=== PATIENT | male | born 1990 | race Caucasian/White ===

== ENCOUNTER 2018-08-05 11:20 | Emergency (ER) | payer BC ==
[~2018-08-05] VITALS: Ht 182.8 cm; Wt 79.4 kg
[~2018-08-05 11:20] MED LIST: NKHM
[2018-08-05 12:02] LABS: BILIRUBIN NEGATIVE (NEGATIVE); BLOOD TRACE-LYSED (NEGATIVE); CLARITY SL CLOUDY (CLEAR); COLOR YELLOW (YELLOW); GLUCOSE NEGATIVE (NEGATIVE); KETONE NEGATIVE (NEGATIVE); LEUKO ESTERASE NEGATIVE (NEGATIVE); NITRITE NEGATIVE (NEGATIVE); SPECIFIC GRAVITY 1.015 (1.005-1.030); UROBILINOGEN 0.2 E.U./dl (0.2-1.0)
[2018-08-05 12:12] LABS: URINE AMPHETAMINES < 1000 (1000ng/ml); URINE BARBITURATES < 200 (200ng/ml); URINE BENZODIAZEPINES < 200 (200ng/ml); URINE CANNABINOIDS (THC) < 50 (50ng/ml); URINE COCAINE < 300 (300ng/ml); URINE METHADONE < 300 (300ng/ml); URINE OPIATES < 300 (300ng/ml)
[2018-08-05 12:13] LABS: URINE PHENCYCLIDINE < 25 (25ng/ml)
[2018-08-05 12:15] LABS: BASO % 0.5 % (0.0-1.0); EOS # 0.1 10*3/uL (0.0-0.4); EOS % 0.9 % (1.0-4.0); HEMATOCRIT 47.3 % (42.0-52.0); LYMPH # 1.7 10*3/uL (1.3-4.4); LYMPH % 18.9 % (27.0-41.0); MEAN CELL VOLUME 86.9 fl (80.0-94.0); MEAN CORPUSCULAR HGB 31.3 pg (27.0-31.0); MEAN CORPUSCULAR HGB CONC 35.9 g/dl (33.0-37.0); MEAN PLATELET VOLUME 9.5 fl (9.6-12.3); MONO # 0.8 10*3/uL (0.1-1.0); MONO % 8.7 % (3.0-9.0); NEUT # 6.2 10*3/uL (2.3-7.9); NEUT % 70.7 % (47.0-73.0); PLATELET COUNT AUTOMATED 236 10*3/uL (130-400); RED BLOOD COUNT 5.44 10*6/uL (4.50-5.90); RED CELL DISTRI WIDTH 12.1 % (0-14.5); WHITE BLOOD COUNT 8.8 10*3/uL (4.8-10.8)
[2018-08-05 12:25] LABS: BACTERIA TRACE; MUCOUS TRACE
[2018-08-05 12:42] LABS: ALBUMIN 3.9 gm/dl (3.1-4.5); ALKALINE PHOSPHATASE 101 U/L (45-117); BUN 13 mg/dl (7-24); CHLORIDE 106 mmol/L (98-107); CREATININE 0.83 mg/dL (0.70-1.30); LIPASE 120 U/L (73-393); POTASSIUM 4.4 mmol/L (3.5-5.1); SGOT/AST 19 IU/L (3-35); SGPT/ALT 29 U/L (12-78); SODIUM 140 mmol/L (136-145); TOTAL PROTEIN 7.8 gm/dL (6.4-8.2)
== END 2018-08-05 13:15 | disposition home or self-care (01) ==
LOC: ED 11:20
PROVIDERS: Nurse Practitioner Family
DX: R10.11 Right upper quadrant pain (principal); R19.7 Diarrhea, unspecified

== ENCOUNTER → 2019-03-12 | Day surgery (SDC) | payer BC ==
[~2019-03-12] VITALS: Ht 182.8 cm; Wt 79.4 kg
[~2019-03-12] MED LIST changes: +AMITRIPTYLINE H10 M1 PO; +MULTIVITAMINS1 EAC1 PO; +PRILOSEC20 M1 PO; +PROBIOTIC1 EAC1 PO
--- NOTE | ~2019-03-12 | O ---
[place], [place] OPERATIVE NOTE NAME: GRETCHEN WEATHERS UNIT #: [id number] ROOM: DOCTOR: MARYA KLEIN MD BIRTHDATE: [birth year] DOS: 03/12/2019 GASTROENDOSCOPIC REPORT INDICATIONS: This is a 28-year-old patient who has presented with chief complaint of nausea, epigastric distress, blood in emesis. Nonspecific abdominal pain. PROCEDURE: Today's procedure part of investigation is colonoscopy and endoscopy. PREMEDICATION: Propofol. SCOPE: Olympus forward-viewing gastroscope Q10 video. REPORT: After putting the patient in left lateral position and application of lubricant to the scope, the scope was introduced. Thereafter, under direct visualization, advanced through the length of esophagus without difficulty. Distal esophagitis secondary to reflux noticed. Gastric pouch was entered. Bile reflux gastritis seen, photographed. Biopsy from antrum was obtained for H. pylori. Duodenal bulb, second and third part within normal limit. The patient extubated after photographic series, tolerated the procedure well. IMPRESSION: Distal esophagitis secondary to bile reflux gastritis. PLAN AND DISCUSSION: Prilosec 40 mg daily, antireflux measures with elevation of the head of the bed 6 inch all time, Gaviscon as antacid of choice 1 at bedtime. We are going to proceed with colonoscopy. PROCEDURE #2 CHIEF COMPLAINT: The patient had presented with a chief complaint of abdominal nonspecific pain, undergoing investigation. PROCEDURE: Today's procedure part of investigation is colonoscopy. PREMEDICATION: Propofol. SCOPE: Olympus forward-viewing colonoscope 10L video. DESCRIPTION OF PROCEDURE: After putting the patient in left lateral position and application of lubricant to the scope, the scope was introduced. Thereafter, under direct visualization advanced through the length of colon without difficulty. Base of the cecum explored, appendiceal orifice identified, ileocecal valve was defined. Scope was gradually withdrawn from ascending, transverse, descending colon. Air was suctioned out. The patient was extubated, tolerated the procedure well. IMPRESSION: Normal colonoscopic examination. [place], [place] OPERATIVE NOTE NAME: GRETCHEN WEATHERS UNIT #: [id number] ROOM: DOCTOR: MARYA KLEIN MD BIRTHDATE: [birth year] PLAN AND DISCUSSION: His abdominal pain and distress is mostly involved with his gastric pouch and bile reflux. We are going to continue with Prilosec therapy and antireflux management and an element of irritable bowel syndrome is kept in mind and we will reassess the patient in the outpatient setting.Follow-up colonoscopy in 10 years unless there are symptoms in which case follow-up should be as needed. Thank you again for your kind referral. MARYA KLEIN MD CM:OPRECORD:OPERATIVE NOTE [id number] MARYA KLEIN MD 03/17/19 [id number] interface
[2019-03-12 09:30] VITALS: BP 131/92
[2019-03-12 10:32] VITALS: BP 107/54
[2019-03-12 10:45] VITALS: BP 106/56
[2019-03-12 11:02] VITALS: BP 131/73
== END | disposition home or self-care (01) ==
LOC: SDC 03-07 13:15
DX: R19.4 Change in bowel habit (principal); K21.0 Gastro-esophageal reflux disease with esophagitis; K29.50 Unspecified chronic gastritis without bleeding; Z79.899 Other long term (current) drug therapy; Z98.890 Other specified postprocedural states

== ENCOUNTER → 2019-05-12 | Outpatient (CLI) | payer BC | END | disposition home or self-care (01) | LOC: RAD 14:26 | DX: R07.89 Other chest pain (principal) ==

== ENCOUNTER → 2019-06-03 | Outpatient (CLI) | payer BC | END | disposition home or self-care (01) | LOC: US 07:04 | DX: R16.1 Splenomegaly, not elsewhere classified (principal) ==

== ENCOUNTER → 2020-06-07 | Outpatient (CLI) | payer BC | END | disposition home or self-care (01) | LOC: COVID19 10:20 | PROVIDERS: ATTEND Internal Medicine | DX: Z20.828 Contact with and (suspected) exposure to other viral communicable diseases (principal) ==

== ENCOUNTER → 2020-06-09 | Outpatient (CLI) | payer BC | END | disposition home or self-care (01) | LOC: COVID19 14:08 | PROVIDERS: ATTEND Internal Medicine | DX: U07.1 COVID-19 (principal) ==